=== PATIENT | male | born 1995 | race Caucasian/White ===

== ENCOUNTER 2016-09-07 11:38 | Emergency (ER) | payer OTHER ==
[~2016-09-07] VITALS: Wt 90.0 kg
[~2016-09-07 11:38] MED LIST: NAPR-688 PO; ONDA4TAB11 PO; RANI150T9 PO
[2016-09-07] MEDS ORDERED: morphine 4 MG/ML VIAL IV STA (12:05)
[2016-09-07] MEDS ORDERED: SOD CHLORIDE 0.9% 1,000 ML IV STA ×2 (12:05→13:46)
[2016-09-07] MEDS ORDERED: ONDANSETRON 4 MG INJ IV STA (12:05)
[2016-09-07 12:36] LABS: ALBUMIN 4.3 g/dl (3.3-4.9); BASOPHIL # 0.1 10^3/ul (0.0-0.1); BASOPHILS % 0.4 % (0.0-2.0); EOSINOPHILS # 0.2 10^3/ul (0.0-0.5); EOSINOPHILS % 1.2 % (0.0-7.0); HEMATOCRIT 42.7 % (42.0-52.0); HEMOGLOBIN 14.8 g/dl (14.0-18.0); LYMPHOCYTES # 3.9 10^3/ul (0.8-2.9); LYMPHOCYTES % 22.6 % (18.0-55.0); MEAN CORPUSCULAR HEMOGLOBIN 29.8 pg (29.0-33.0); MEAN CORPUSCULAR HGB CONC 34.6 g/dl (32.0-37.0); MEAN CORPUSCULAR VOLUME 86.2 fl (72.0-104.0); MEAN PLATELET VOLUME 9.7 fl (7.4-10.4); MONOCYTES % 5.8 % (0.0-13.0); NEUTROPHIL # 11.9 10^3/ul (1.6-7.5); PLATELET COUNT 247 10^3/UL (140-440); RED BLOOD COUNT 4.95 10^6/ul (4.70-6.10); RED CELL DISTRIBUTION WIDTH 13.4 % (11.5-14.5)
[2016-09-07 12:37] LABS: POTASSIUM 3.4 mmol/L (3.5-5.1)
[2016-09-07 12:38] LABS: INR 0.89; PARTIAL THROMBOPLASTIN TIME 25.2 Sec (25.0-35.0); PT RATIO 0.9
[2016-09-07 12:39] LABS: ALBUMIN/GLOBULIN RATIO 1.07; BILIRUBIN,INDIRECT 0.4 mg/dl (0-1.1); BILIRUBIN,TOTAL 0.4 mg/dl (0.2-1.3); CALCIUM 9.6 mg/dl (8.4-10.2); CREATININE 0.77 mg/dl (0.61-1.24); TOTAL PROTEIN 8.3 g/dl (6.1-8.1)
[2016-09-07 12:42] LABS: CONDITION 1; LH ANALYZER COMMENTS 1; SUSPECT 1
[2016-09-07] MEDS ORDERED: METOCLOPRAMIDE 10 MG INJ IV STA (13:46)
[2016-09-07] MEDS ORDERED: HYDROmorphONE 1 MG/ML SYG IV STA (13:46)
[2016-09-07] MEDS ORDERED: FAMOTIDINE 20 MG INJ IV STA (13:46)
[2016-09-07] MEDS ORDERED: BELLADONNA/PHENOBARBITAL TAB PO STA (13:52)
[2016-09-07] MEDS ORDERED: LIDOCAINE/MYLANTA 40 ML BTL PO STA (13:52)
--- NOTE | 2016-09-07 14:13 | ERD ---
ER Documentation Chief Complaint Date/Time DATE: 09/07/16 TIME: 14:06 Chief Complaint ABDOMINAL PAIN SINCE LAST NIGHT. UNABLE TO HOLD PO FLUIDS HPI This is a 20-year-old male with a known history of gastritis. The patient indicates that over the past 12 hours he has experienced multiple episodes of nonbloody nonbilious emesis. Afterwards he developed abdominal cramping that was most prominent in the left lower quadrant. The abdominal pain did not radiate to the back. He has had no fevers no shaking or chills. He denies any hemoptysis hematemesis or melanotic stools. He has no shortness of breath at rest or exertion. He states he has been unable to tolerate oral intake is every time he attempts to eat he has post prandial emesis. The patient did not take any analgesic medication prior to arrival and he indicates that his symptoms are similar nature to his previous episodes of gastritis, the most recent being 4 months prior to arrival. ROS All systems reviewed and are negative except as per history of present illness. Medications Home Meds Discontinued Scripts Naproxen* (Naproxen*) 500 Mg Tablet, 500 MG PO BID for PAIN, #14 TAB Prov:GREENADALBERTO DO 05/03/16 Ranitidine Hcl* (Zantac*) 150 Mg Tablet, 150 MG PO BID Y for EPIGASTRIC PAIN, # 30 TAB Prov:GREENADALBERTO DO 05/03/16 Ondansetron (Zofran Odt) 4 Mg Tab.rapdis, 4 MG PO Q6, #10 Prov:GREENADALBERTO DO 05/03/16 Allergies Allergies: Coded Allergies: No Known Allergies (Verified Allergy, Mild, 05/12/15) PMhx/Soc History of Surgery: Yes (MOUTH SURGERY) Anesthesia Reaction: No Hx Neurological Disorder: No Hx Respiratory Disorders: No Hx Cardiac Disorders: No Hx Psychiatric Problems: No Hx Miscellaneous Medical Probl: Yes (gastritis) Hx Alcohol Use: Yes Hx Substance Use: No Hx Tobacco Use: No Smoking Status: Never smoker Physical Exam Vitals Vital Signs Date Time Temp Pulse Resp B/P Pulse Ox O2 Delivery O2 Flow Rate FiO2 09/07/16 11:40 98.6 97 20 132/79 100 Physical Exam Constitutional:Well-developed. Well-nourished. Actively vomiting nonbloody nonbilious emesis HEENT:Normocephalic. Atraumatic.Pupils were equal round reactive to light. Very dry mucous membranes.No tonsillar exudates. Neck: No nuchal rigidity. No lymphadenopathy. No posterior cervical spine tenderness or step-offs. Respiratory: Not using accessory muscles of respiration.Lungs were clear to auscultation bilaterally. No rhonchi. No rales. No wheezing. Cardiovascular: Regular rate regular rhythm.No murmurs. No rubs were appreciated.S1, S2 normal. Distal pulses are palpable 2+ bilaterally. GI: Abdomen was soft. Minimal tenderness in the left lower quadrant. Non Distended. No pulsatile abdominal masses or bruits. No rebound. No guarding. Bowel sounds were present and normal. Muscle skeletal: Full range of motion of both the upper and lower extremities bilaterally.Normal muscle tone.No assymetrical calf tenderness or swelling. Skin: No petechia, no purpura. No lesions on the palms or the soles of the feet. No maculopapular rash. NEURO: Patient was alert, awake, orientated x3.No facial droop. Gait observed and normal with no ataxia.Speech had regular rate and rhythm. No focal neurological deficits. Result Diagram: 09/07/16 1220 09/07/16 1220 Results 24 hrs Laboratory Tests Test 09/07/16 12:20 Activated Partial Thromboplast Time 25.2Sec Alanine Aminotransferase (ALT/SGPT) 47IU/L Albumin 4.3g/dl Albumin/Globulin Ratio 1.07 Alkaline Phosphatase 100IU/L Amylase Level 88U/L Anion Gap 19 Aspartate Amino Transf (AST/SGOT) 29IU/L Basophils # 0.110^3/ul Basophils % 0.4% Blood Urea Nitrogen 12mg/dl Calcium Level 9.6mg/dl Carbon Dioxide Level 21mmol/L Chloride Level 104mmol/L Creatinine 0.77mg/dl Direct Bilirubin 0.00mg/dl Eosinophils # 0.210^3/ul Eosinophils % 1.2% Globulin 4.00g/dl Glucose Level 154mg/dl Hematocrit 42.7% Hemoglobin 14.8g/dl INR International Normalized Ratio 0.89 Indirect Bilirubin 0.4mg/dl Lipase 70U/L Lymphocytes # 3.910^3/ul Lymphocytes % 22.6% Mean Corpuscular Hemoglobin 29.8pg Mean Corpuscular Hemoglobin Concent 34.6g/dl Mean Corpuscular Volume 86.2fl Mean Platelet Volume 9.7fl Monocytes # 1.010^3/ul Monocytes % 5.8% Neutrophils # 11.910^3/ul Neutrophils % 70.0% Nucleated Red Blood Cells # 0.010^3/ul Nucleated Red Blood Cells % 0.0/100WBC Platelet Count 58157^3/UL Potassium Level 3.4mmol/L Prothrombin Time 12.0Sec Prothrombin Time Ratio 0.9 Red Blood Count 4.9510^6/ul Red Cell Distribution Width 13.4% Sodium Level 141mmol/L Total Bilirubin 0.4mg/dl Total Protein 8.3g/dl White Blood Count 17.010^3/ul Current Medications Medications (Trade) Dose Ordered Sig/Yuly Route PRN Reason Start Time Stop Time Status Last Admin Dose Admin Sodium Chloride (NS) 1,000 ml @ 1,000 mls/hr Q1H STAT IV 09/07/16 12:05 09/07/16 13:04 DC 09/07/16 12:28 Morphine Sulfate (morphine) 4 mg ONCE STAT IV 09/07/16 12:05 09/07/16 12:10 DC 09/07/16 12:28 Ondansetron HCl 4 mg 4 mg ONCE STAT IV 09/07/16 12:05 09/07/16 12:10 DC 09/07/16 12:28 Sodium Chloride (NS) 1,000 ml @ 1,000 mls/hr Q1H STAT IV 09/07/16 13:46 09/07/16 14:45 Hydromorphone HCl (Dilaudid) 1 mg ONCE STAT IV 09/07/16 13:46 09/07/16 13:49 DC Metoclopramide HCl (Reglan) 10 mg ONCE STAT IV 09/07/16 13:46 09/07/16 13:49 DC Famotidine (Pepcid Iv) 20 mg ONCE STAT IV 09/07/16 13:46 09/07/16 13:49 DC Miscellaneous Medication (Gi Cocktail (2)) 40 ml ONCE STAT PO 09/07/16 13:52 09/07/16 13:53 DC Belladonna/ Phenobarbital () 2 tab ONCE STAT PO 09/07/16 13:52 09/07/16 13:53 DC Procedures/MDM This patient presented to the emergency department with abdominal pain and was seen and evaluated by myself. My differential diagnosis included but was not limited to abdominal aortic aneurysm, appendicitis, pancreatitis, perforated peptic ulcer, perforated viscus, Boerhaaves syndrome or visceral pain such as diverticulitis, DKA, esophagitis, hepatitis or bowel obstruction. The patient was placed on a cardiac/vascular sonographer, continuous pulse oximetry, and IV access was established by nursing staff. The patient received analgesic medication which included morphine Zofran and was also given IV Pepcid. For further antiemetics the patient received Reglan. He was also given a GI cocktail. I did feel is necessary to obtain a CT scan of his abdomen due to the severity of his symptoms and emesis. There did not appear to be an acute surgical abdomen or abnormality seen on the CT scan. The patient is now able to tolerate oral intake and he did feel comfortable being discharged home. He was sent home with Prilosec and Zofran. The patient was discharged home in fair condition. They were instructed to return to the emergency department at any time if there was any worsening of their condition. The patient stated they would follow up with their PCP in the next 24-48 hours to initiate a suitable medication regimen under the care of their PCP as well as to allow their PCP to monitor any drug reactions. The patient was discharged home with prescriptions after they gave informed consent to the new medication. They were also fully informed by myself on the adverse effects and adverse drug interactions in order to provide adequate safeguards to prevent possible adverse reactions to medications. Observation Note: Time: 4 hours Family Hx: No Hypertension Evaluation: Multiple exams showed improving symptoms and no evidence of further emesis as he was able to tolerate oral intake Departure Diagnosis: Primary Impression: Acute gastritis Gastritis type: unspecified gastritis Gastritis bleeding: without bleeding Qualified Code: K29.00 - Acute gastritis without hemorrhage, unspecified gastritis type Condition: Fair JAYLA BECERRA Sep 07, 2016 14:13
[2016-09-07] MEDS ORDERED: IOHEXOL 300MG/ML 150 ML BTL ONE (14:29)
[2016-09-07] MEDS ORDERED: SOD CHLORIDE 0.9% 100 ML ONE (14:29)
--- NOTE | 2016-09-07 15:01 | RADRPT ---
PROCEDURE: CT Abdomen and Pelvis with contrast. CLINICAL INDICATION: Abdomen and pelvis pain. TECHNIQUE: CT scan of the abdomen and pelvis with contrast was performed. The patient was scanned following the uncomplicated intravenous administration of 100 cc of Omnipaque-300. Coronal and sag ittal reformatted images were obtained from the axial source images. Images were reviewed on a high- resolution PACS workstation. Total exam DLP is 1169.52 mGy-cm. CTDIvol is 17.92 mGy. One or more of the following dose reduction techniques were used: Automated exposure control, adjustment of the mA and/or kV according to patient size, use of iterative reconstruction technique. COMPARISON: CT scan of the abdomen and pelvis dated 04/21/2013, 03/28/2014, and 01/24/2015 which w ere normal. FINDINGS: The lung bases are normal. There is no pleural effusion. The liver is normal in size and attenuation. There is no focal hepatic lesion. The gallbladder and bile ducts are normal. The spleen is normal in size. There is no focal splenic lesion. Both adrenals are normal with no enlargement or mass. The pancreas is unremarkable with no mass or evidence of pancreatitis. Both kidneys demonstrate normal contrast enhancement. There is no renal mass or hydronephrosis. The abdominal aorta is not dilated. There is no retroperitoneal lymphadenopathy or mass. There is no pelvic lymphadenopathy or mass. The bladder and distal ureters are normal. The periappendiceal region is unremarkable with no evidence of appendicitis. The bowel and mesentery are normal. There is no free fluid or free gas. The osseous structures are unremarkable with no fracture or lytic lesion. IMPRESSION: 1. Unremarkable CT scan of the abdomen and pelvis. 2. No change from 04/21/2013, 03/28/2014, and 01/24/2015. RPTAT: QQ .Koby Pascual MD, MD Date Time Electronically viewed and signed by .Koby Pascual MD, on 09/07/2016 15:01 .R/
[2016-09-07] MEDS ORDERED: ONDA4TAB14 PO (15:04)
[2016-09-07] MEDS ORDERED: OMEP40CA6 PO (15:04)
[2016-09-07 15:45] VITALS: BP 132/78; PULSE 67; RESP 18; TEMP 98.6
== END 2016-09-07 15:52 | disposition home or self-care (01) ==
LOC: E/R 11:38
DX: K29.00 Acute gastritis without bleeding (principal); R11.10 Vomiting, unspecified
CPT/HCPCS: 74177; 80053; 82150; 83690; 85025; 85610; 85730; 96374; 96375; J1170; J2270; J2405; J2765; J7030; Q9967; Z7502; Z7610

== ENCOUNTER 2017-03-16 10:10 | Emergency (ER) | payer MEDICAID ==
[~2017-03-16] VITALS: Ht 193 cm; Wt 205.0 kg
[~2017-03-16 10:10] MED LIST changes: +HYDR-906 PO; +OMEP40CA6 PO; +ONDA4TAB14 PO
[2017-03-16 10:20] VITALS: Ht 193 cm; Wt 205.0 kg
[2017-03-16] MEDS ORDERED: ONDANSETRON 4 MG INJ IV STA (12:10)
[2017-03-16] MEDS ORDERED: morphine 4 MG/ML VIAL IV STA (12:15)
[2017-03-16] MEDS ORDERED: FAMOTIDINE 20 MG INJ IV ONE (12:30)
[2017-03-16 12:34] LABS: BASOPHIL # 0.1 10^3/ul (0.0-0.1); BASOPHILS % 0.3 % (0.0-2.0); EOSINOPHILS % 0.2 % (0.0-7.0); HEMATOCRIT 41.3 % (42.0-52.0); HEMOGLOBIN 14.7 g/dl (14.0-18.0); LYMPHOCYTES # 1.4 10^3/ul (0.8-2.9); LYMPHOCYTES % 8.3 % (15.0-51.0); MEAN CORPUSCULAR HEMOGLOBIN 30.6 pg (29.0-33.0); MEAN CORPUSCULAR HGB CONC 35.6 g/dl (32.0-37.0); MEAN CORPUSCULAR VOLUME 85.9 fl (82.0-101.0); MEAN PLATELET VOLUME 11.4 fl (7.4-10.4); MONOCYTE # 0.8 10^3/ul (0.3-0.9); MONOCYTES % 4.5 % (0.0-11.0); NEUTROPHIL # 14.8 10^3/ul (1.6-7.5); NEUTROPHILS % 86.2 % (39.0-77.0); PLATELET COUNT 199 10^3/UL (140-415); RED BLOOD COUNT 4.81 10^6/ul (4.70-6.10); RED CELL DISTRIBUTION WIDTH 12.9 % (11.5-14.5); WHITE BLOOD COUNT 17.2 10^3/ul (4.8-10.8)
--- NOTE | 2017-03-16 12:48 | ERD ---
ER Documentation Chief Complaint Date/Time DATE: 03/16/17 TIME: 12:44 Chief Complaint LOUDLY VOMITING HPI This a 21-year-old male who presents the emergency department today complaining of abdominal pain and vomiting for the past 5 days and worsened today. Patient states he has been told he has gastritis in the past. States that he drinks 1 beer per month. States that he smokes marijuana daily. Denies any fevers or chills. ROS All systems reviewed and are negative except as per history of present illness. Medications Home Meds Active Scripts Electrolyte,Oral (Pedialyte) 1,000 Ml Solution, 100 ML PO Q6 Y for vomiting, # 1000 ML Prov:TIA CORRAL PA-C 03/16/17 Acetaminophen* (Tylophen*) 500 Mg Capsule, 1 CAP PO Q6H Y for PAIN AND OR ELEVATED TEMP, #30 CAP Prov:TIA CORRAL PA-C 03/16/17 Famotidine* (Pepcid*) 20 Mg Tablet, 20 MG PO BID for 14 Days, TAB Prov:TIA CORRAL PA-C 03/16/17 Ondansetron Hcl* (Zofran*) 4 Mg Tablet, 4 MG PO Q6H for NAUSEA AND/OR VOMITING, #30 TAB Prov:TIA CORRAL PA-C 03/16/17 Ranitidine Hcl* (Zantac*) 150 Mg Tablet, 150 MG PO BID Y for EPIGASTRIC PAIN, # 30 TAB Prov:ADALBERTO BEGUM DO 10/15/16 Hydrocodone/Acetaminophen ([place] 5-325 Tablet) 1 Each Tablet, 1 EACH PO Q6, #10 TAB Prov:ADALBERTO BEGUM DO 10/15/16 Ondansetron (Zofran Odt) 4 Mg Tab.rapdis, 4 MG PO Q6, #10 Prov:ADALBERTO BEGUM DO 10/15/16 Naproxen* (Naproxen*) 500 Mg Tablet, 500 MG PO BID Y for PAIN, #20 TAB Prov:ADALBERTO BEGUM DO 10/15/16 Omeprazole* (Omeprazole*) 40 Mg Capsule.dr, 40 MG PO DAILY, #10 CAP Prov:JAYLA BECERRA 09/07/16 Ondansetron (Ondansetron Odt) 4 Mg Tab.rapdis, 4 MG PO Q6H Y for NAUSEA AND/OR VOMITING, #20 TAB Prov:JAYLA BECERRA 09/07/16 Allergies Allergies: Coded Allergies: No Known Allergies (Verified Allergy, Mild, 03/16/17) PMhx/Soc History of Surgery: Yes (MOUTH SURGERY) Anesthesia Reaction: No Hx Neurological Disorder: No Hx Respiratory Disorders: No Hx Cardiac Disorders: No Hx Psychiatric Problems: No Hx Miscellaneous Medical Probl: Yes (gastritis) Hx Alcohol Use: Yes (socially) Hx Substance Use: Yes (daily marijuana) Hx Tobacco Use: Yes Smoking Status: Current every day smoker Physical Exam Vitals Vital Signs Date Time Temp Pulse Resp B/P Pulse Ox O2 Delivery O2 Flow Rate FiO2 03/16/17 10:20 98.5 84 18 141/74 100 Physical Exam Const: No acute distress Head: Atraumatic Eyes: Normal Conjunctiva ENT: Normal External Ears, Nose and Mouth. Throat erythema no exudate. Neck: Full range of motion..~ No meningismus. Resp: Clear to auscultation bilaterally Cardio: Regular rate and rhythm, no murmurs Abd: Soft, epigastric tenderness mild left upper quadrant non distended. Normal bowel sounds. No other quadrant pain. No tenderness [place] Skin: No petechiae or rashes Back: No midline or flank tenderness Ext: No cyanosis, or edema Neur: Awake and alert Psych: Normal Mood and Affect Result Diagram: 03/16/17 1225 03/16/17 1225 Results 24 hrs Laboratory Tests Test 03/16/17 12:25 White Blood Count 17.210^3/ul Red Blood Count 4.8110^6/ul Hemoglobin 14.7g/dl Hematocrit 41.3% Mean Corpuscular Volume 85.9fl Mean Corpuscular Hemoglobin 30.6pg Mean Corpuscular Hemoglobin Concent 35.6g/dl Red Cell Distribution Width 12.9% Platelet Count 54761^3/UL Mean Platelet Volume 11.4fl Neutrophils % 86.2% Lymphocytes % 8.3% Monocytes % 4.5% Eosinophils % 0.2% Basophils % 0.3% Nucleated Red Blood Cells % 0.0/100WBC Neutrophils # 14.810^3/ul Lymphocytes # 1.410^3/ul Monocytes # 0.810^3/ul Eosinophils # 0.010^3/ul Basophils # 0.110^3/ul Nucleated Red Blood Cells # 0.010^3/ul Sodium Level 144mmol/L Potassium Level 3.6mmol/L Chloride Level 101mmol/L Carbon Dioxide Level 22mmol/L Anion Gap 25 Blood Urea Nitrogen 11mg/dl Creatinine 0.74mg/dl Glucose Level 163mg/dl Calcium Level 10.0mg/dl Total Bilirubin 1.0mg/dl Direct Bilirubin 0.00mg/dl Indirect Bilirubin 1.0mg/dl Aspartate Amino Transf (AST/SGOT) 30IU/L Alanine Aminotransferase (ALT/SGPT) 43IU/L Alkaline Phosphatase 89IU/L Total Protein 8.7g/dl Albumin 4.8g/dl Globulin 3.90g/dl Albumin/Globulin Ratio 1.23 Lipase 84U/L Current Medications Medications (Trade) Dose Ordered Sig/Yuly Route PRN Reason Start Time Stop Time Status Last Admin Dose Admin Ondansetron HCl (Zofran Inj) 4 mg ONCE STAT IV 03/16/17 12:10 03/16/17 12:13 DC 03/16/17 12:28 Famotidine (Pepcid Iv) 20 mg ONCE ONCE IV 03/16/17 12:30 03/16/17 12:31 DC 03/16/17 12:28 Morphine Sulfate 4 mg 4 mg ONCE STAT IV 03/16/17 12:15 03/16/17 12:16 DC 03/16/17 12:39 Sodium Chloride (NS) 500 ml @ 500 mls/hr Q1H ONCE IV 03/16/17 14:30 03/16/17 15:09 DC 03/16/17 14:04 Metoclopramide HCl (Reglan) 10 mg ONCE ONCE IV 03/16/17 14:30 03/16/17 14:31 DC 03/16/17 14:10 Procedures/[facility] Is a 21-year-old male presents to the emergency department today complaining of abdominal pain and vomiting for the past 5 days it is worse today. Upon review of patient's medical records patient has been seen 2 other times this year multiple times in the past for vomiting and epigastric pain. Patient's vital signs are stable however given duration of symptoms I did obtain laboratory work. I do not feel he requires a CT scan or imaging at this time. Low suspicion for acute surgical abdomen. Laboratory workup shows an elevated white blood cell count. Electro lites are within normal limits. Lipase within normal limits. Liver enzymes are within normal limits. Glucose within normal limits. Upon review of patient's medical records patient always has an elevated white blood cell count and the lowest upon review of medical records is 16. Patient' s white blood cell count 17 today. Likely reactive. Patient endorsed smoking marijuana daily and I have explained to him that this may be the cause of much of his vomiting the symptoms appear consistent with cyclic vomiting syndrome and vomiting related to cannabis use. I have explained to the patient he needs to stop smoking marijuana. Patient was given , morphine, Zofran and Pepcid here in the emergency department as well as a p.o. challenge. Patient was complaining that he was dizzy was therefore given IV fluids and Reglan. Patient's dizziness, pain and vomiting improved. He was discharged home with Zofran, Pepcid, Tylenol. Patient was instructed to stop abusing marijuana. At this time the patient is stable for discharge and outpatient management. Patient should follow up with their PCP in the next 1-2 days. They may return to the emergency department sooner for any persistent or worsening of symptoms. Patient understood and agreed with the plan. Departure Diagnosis: Primary Impression: Nausea and vomiting Vomiting type: unspecified Vomiting Intractability: non-intractable Qualified Code: R11.2 - Non-intractable vomiting with nausea, unspecified vomiting type Additional Impression: Abdominal pain Abdominal location: epigastric Qualified Code: R10.13 - Epigastric pain Condition: TIA Jaimes PA-C Mar 16, 2017 12:48
[2017-03-16 12:54] LABS: ALBUMIN 4.8 g/dl (3.3-4.9); ALBUMIN/GLOBULIN RATIO 1.23; CREATININE 0.74 mg/dl (0.61-1.24); POTASSIUM 3.6 mmol/L (3.5-5.1); TOTAL PROTEIN 8.7 g/dl (6.1-8.1)
[2017-03-16] MEDS ORDERED: SOD CHLORIDE 0.9% 500 ML IV ONE (14:30)
[2017-03-16] MEDS ORDERED: METOCLOPRAMIDE 10 MG INJ IV ONE (14:30)
[2017-03-16] MEDS ORDERED: ONDA4TAB8 PO (14:50)
[2017-03-16] MEDS ORDERED: FAMO-96 PO (14:51)
[2017-03-16] MEDS ORDERED: ACET500C5 PO (14:51)
[2017-03-16] MEDS ORDERED: ELEC100080 PO (14:51)
== END 2017-03-16 15:09 | disposition home or self-care (01) ==
LOC: FTE 10:10
DX: R11.2 Nausea with vomiting, unspecified (principal); R10.13 Epigastric pain; F17.210 Nicotine dependence, cigarettes, uncomplicated
CPT/HCPCS: 80053; 83690; 85025; 96374; 96375; J2270; J2405; J2765; J7040; Z7502; Z7610

== ENCOUNTER 2017-06-01 17:53 | Emergency (ER) | payer MEDICAID ==
[~2017-06-01] VITALS: Ht 175.3 cm; Wt 68.0 kg
[~2017-06-01 17:53] MED LIST changes: +ACET500C5 PO; +ELEC100080 PO; +FAMO-96 PO; +ONDA4TAB8 PO
[2017-06-01 18:03] VITALS: Ht 175.3 cm; Wt 68.0 kg
[2017-06-01] MEDS ORDERED: FAMOTIDINE 20 MG INJ IV STA (18:51)
[2017-06-01] MEDS ORDERED: SOD CHLORIDE 0.9% 1,000 ML IV STA (18:51)
[2017-06-01] MEDS ORDERED: ONDANSETRON 4 MG INJ IV STA (18:51)
[2017-06-01] MEDS ORDERED: morphine 4 MG/ML VIAL IV STA ×2 (18:51→20:15)
[2017-06-01] MEDS ORDERED: LIDOCAINE/MYLANTA 40 ML BTL PO STA (18:51)
[2017-06-01 19:24] LABS: BASOPHIL # 0.1 10^3/ul (0.0-0.1); BASOPHILS % 0.3 % (0.0-2.0); EOSINOPHILS # 0.1 10^3/ul (0.0-0.5); EOSINOPHILS % 0.8 % (0.0-7.0); HEMATOCRIT 39.7 % (42.0-52.0); HEMOGLOBIN 13.7 g/dl (14.0-18.0); LYMPHOCYTES # 2.3 10^3/ul (0.8-2.9); LYMPHOCYTES % 13.9 % (15.0-51.0); MEAN CORPUSCULAR HGB CONC 34.5 g/dl (32.0-37.0); MEAN CORPUSCULAR VOLUME 87.1 fl (82.0-101.0); MEAN PLATELET VOLUME 11.4 fl (7.4-10.4); NEUTROPHIL # 13.3 10^3/ul (1.6-7.5); NEUTROPHILS % 78.6 % (39.0-77.0); PLATELET COUNT 224 10^3/UL (140-415); RED BLOOD COUNT 4.56 10^6/ul (4.70-6.10); RED CELL DISTRIBUTION WIDTH 12.8 % (11.5-14.5); WHITE BLOOD COUNT 16.9 10^3/ul (4.8-10.8)
[2017-06-01 19:46] LABS: ADD UMIC YES; UR AMORPHOUS CRYSTAL MODERATE /HPF (NONE SEEN); UR ASCORBIC ACID NEGATIVE (NEGATIVE); UR BACTERIA FEW /HPF (NONE SEEN); UR BILIRUBIN (Dip) NEGATIVE (NEGATIVE); UR BLOOD (Dip) NEGATIVE (NEGATIVE); UR CLARITY CLOUDY (CLEAR); UR COLOR YELLOW (YELLOW); UR GLUCOSE (Dip) NEGATIVE (NEGATIVE); UR KETONES (Dip) 1+ mg/dL (NEGATIVE); UR LEUKOCYTE ESTERASE (Dip) NEGATIVE Leu/ul (NEGATIVE); UR MUCUS FEW /HPF (NONE SEEN); UR NITRITE (Dip) NEGATIVE (NEGATIVE); UR RBC 2 /HPF (0-5); UR SPECIFIC GRAVITY (Dip) 1.014 (1.003-1.030); UR TOTAL PROTEIN (Dip) NEGATIVE (NEGATIVE); UR UROBILINOGEN (Dip) 1+ mg/dL (NEGATIVE)
[2017-06-01 19:52] LABS: ALBUMIN 4.7 g/dl (3.3-4.9); ALBUMIN/GLOBULIN RATIO 1.34; BILIRUBIN,INDIRECT 0.4 mg/dl (0-1.1); BILIRUBIN,TOTAL 0.4 mg/dl (0.2-1.3); CALCIUM 9.8 mg/dl (8.4-10.2); CREATININE 0.71 mg/dl (0.61-1.24); POTASSIUM 3.2 mmol/L (3.5-5.1); TOTAL PROTEIN 8.2 g/dl (6.1-8.1)
[2017-06-01] MEDS ORDERED: POTASSIUM CHLORIDE (SR) 20 MEQ TAB PO STA (20:21)
[2017-06-01] MEDS ORDERED: LORAZEPAM 2 MG INJ IV ONE (20:30)
[2017-06-01] MEDS ORDERED: ONDA4TAB14 PO (21:36)
[2017-06-01] MEDS ORDERED: OMEP20CA16 PO (21:36)
--- NOTE | 2017-06-03 14:17 | ERD ---
ER Documentation Chief Complaint Chief Complaint Complains of vomiting since today per family HPI Patient is a 21-year-old male presenting to the emergency department with complaints of left upper quadrant and epigastric pain along with one episode of vomiting which began today. Symptoms have been intermittent over the last 1.5 hours. He has history of multiple similar episodes in the past requiring him to come to the emergency room and received IV fluids, IV pain medication, and IV Zofran. He had a CT abdomen and pelvis without contrast on October 15, 2016 which showed: No acute abnormality identified within the abdomen and pelvis. Few scattered colonic diverticuli without evidence of diverticulitis. The patient denies right lower quadrant pain, urinary symptoms, fevers, diarrhea, or other symptoms currently. Symptoms are currently moderate in severity. ROS All systems reviewed and are negative except as per history of present illness. Medications Home Meds Active Scripts Ondansetron (Ondansetron Odt) 4 Mg Tab.rapdis, 4 MG PO Q6H Y for NAUSEA AND/OR VOMITING, #10 TAB Prov:EL BLACK PA-C 06/01/17 Omeprazole* (Omeprazole*) 20 Mg Capsule.dr, 20 MG PO DAILY, #30 Prov:EL BLACK PA-C 06/01/17 Electrolyte,Oral (Pedialyte) 1,000 Ml Solution, 100 ML PO Q6 Y for vomiting, # 1000 ML Prov:TIA CORRAL PA-C 03/16/17 Acetaminophen* (Tylophen*) 500 Mg Capsule, 1 CAP PO Q6H Y for PAIN AND OR ELEVATED TEMP, #30 CAP Prov:TIA CORRAL PA-C 03/16/17 Famotidine* (Pepcid*) 20 Mg Tablet, 20 MG PO BID for 14 Days, TAB Prov:TIA CORRAL PA-C 03/16/17 Ondansetron Hcl* (Zofran*) 4 Mg Tablet, 4 MG PO Q6H for NAUSEA AND/OR VOMITING, #30 TAB Prov:TIA CORRAL PA-C 03/16/17 Ranitidine Hcl* (Zantac*) 150 Mg Tablet, 150 MG PO BID Y for EPIGASTRIC PAIN, # 30 TAB Prov:ADALBERTO BEGUM DO 10/15/16 Hydrocodone/Acetaminophen ([place] 5-325 Tablet) 1 Each Tablet, 1 EACH PO Q6, #10 TAB Prov:ADALBERTO BEGUM DO 10/15/16 Ondansetron (Zofran Odt) 4 Mg Tab.rapdis, 4 MG PO Q6, #10 Prov:ADALBERTO BEGUM DO 10/15/16 Naproxen* (Naproxen*) 500 Mg Tablet, 500 MG PO BID Y for PAIN, #20 TAB Prov:ADALBERTO BEGUM DO 10/15/16 Omeprazole* (Omeprazole*) 40 Mg Capsule.dr, 40 MG PO DAILY, #10 CAP Prov:JAYLA BECERRA 09/07/16 Ondansetron (Ondansetron Odt) 4 Mg Tab.rapdis, 4 MG PO Q6H Y for NAUSEA AND/OR VOMITING, #20 TAB Prov:JAYLA BECERRA 09/07/16 Allergies Allergies: Coded Allergies: No Known Allergies (Verified Allergy, Mild, 03/16/17) PMhx/Soc History of Surgery: Yes (MOUTH SURGERY) Anesthesia Reaction: No Hx Neurological Disorder: No Hx Respiratory Disorders: No Hx Cardiac Disorders: No Hx Psychiatric Problems: No Hx Miscellaneous Medical Probl: Yes (gastritis) Hx Alcohol Use: Yes (socially) Hx Substance Use: Yes (daily marijuana) Hx Tobacco Use: Yes Smoking Status: Smoker,current status unk Physical Exam Vitals Vital Signs Date Time Temp Pulse Resp B/P Pulse Ox O2 Delivery O2 Flow Rate FiO2 06/01/17 18:03 97.0 91 20 138/77 100 Physical Exam Const: Nontoxic, well-appearing male in no acute distress. Head: Atraumatic Eyes: Normal Conjunctiva ENT: Normal External Ears, Nose and Mouth. Neck: Full range of motion..~ No meningismus. Resp: Clear to auscultation bilaterally Cardio: Regular rate and rhythm, no murmurs Abd: Soft, tenderness palpation of the midepigastric region, non distended. Normal bowel sounds Skin: No petechiae or rashes Back: No midline or flank tenderness Ext: No cyanosis, or edema Neur: Awake and alert Psych: Normal Mood and Affect Result Diagram: 06/01/17191706/01/171917 Results 24 hrs Laboratory Tests Test 06/01/17 19:00 10/20/17 19:18 Urine Color YELLOW Urine Clarity CLOUDY Urine pH 8.0 Urine Specific [place] 1.014 Urine Ketones 1+mg/dL Urine Nitrite NEGATIVEmg/dL Urine Bilirubin NEGATIVEmg/dL Urine Urobilinogen 1+mg/dL Urine Leukocyte Esterase NEGATIVELeu/ul Urine Microscopic RBC 2/HPF Urine Microscopic WBC 11/HPF Urine Amorphous Crystals MODERATE/HPF Urine Bacteria FEW/HPF Urine Mucus FEW/HPF Urine Hemoglobin NEGATIVEmg/dL Urine Glucose NEGATIVEmg/dL Urine Total Protein NEGATIVEmg/dl White Blood Count 16.910^3/ul Red Blood Count 4.5610^6/ul Hemoglobin 13.7g/dl Hematocrit 39.7% Mean Corpuscular Volume 87.1fl Mean Corpuscular Hemoglobin 30.0pg Mean Corpuscular Hemoglobin Concent 34.5g/dl Red Cell Distribution Width 12.8% Platelet Count 04040^3/UL Mean Platelet Volume 11.4fl Neutrophils % 78.6% Lymphocytes % 13.9% Monocytes % 6.0% Eosinophils % 0.8% Basophils % 0.3% Nucleated Red Blood Cells % 0.0/100WBC Neutrophils # 13.310^3/ul Lymphocytes # 2.310^3/ul Monocytes # 1.010^3/ul Eosinophils # 0.110^3/ul Basophils # 0.110^3/ul Nucleated Red Blood Cells # 0.010^3/ul Sodium Level 142mmol/L Potassium Level 3.2mmol/L Chloride Level 103mmol/L Carbon Dioxide Level 23mmol/L Anion Gap 19 Blood Urea Nitrogen 9mg/dl Creatinine 0.71mg/dl Glucose Level 157mg/dl Calcium Level 9.8mg/dl Total Bilirubin 0.4mg/dl Direct Bilirubin 0.00mg/dl Indirect Bilirubin 0.4mg/dl Aspartate Amino Transf (AST/SGOT) 28IU/L Alanine Aminotransferase (ALT/SGPT) 37IU/L Alkaline Phosphatase 89IU/L Total Protein 8.2g/dl Albumin 4.7g/dl Globulin 3.50g/dl Albumin/Globulin Ratio 1.34 Lipase 55U/L Current Medications Medications (Trade) Dose Ordered Sig/Yuly Route PRN Reason Start Time Stop Time Status Last Admin Dose Admin Sodium Chloride (NS) 1,000 ml @ 1,000 mls/hr Q1H STAT IV 06/01/17 18:51 06/01/17 19:50 DC 06/01/17 19:17 Morphine Sulfate (morphine) 4 mg ONCE STAT IV 06/01/17 18:51 06/01/17 18:54 DC 06/01/17 19:16 Ondansetron HCl (Zofran Inj) 4 mg ONCE STAT IV 06/01/17 18:51 06/01/17 18:54 DC 06/01/17 19:17 Famotidine (Pepcid Iv) 20 mg ONCE STAT IV 06/01/17 18:51 06/01/17 18:54 DC 06/01/17 19:16 Miscellaneous Medication (Gi Cocktail (2)) 40 ml ONCE STAT PO 06/01/17 18:51 06/01/17 18:54 DC 06/01/17 19:16 Lorazepam (Ativan) 1 mg ONCE ONCE IV 06/01/17 20:30 06/01/17 20:31 DC 06/01/17 20:26 Morphine Sulfate (morphine) 4 mg ONCE STAT IV 06/01/17 20:15 06/01/17 20:20 DC 06/01/17 20:25 Potassium Chloride (Klor-Con 20) 20 meq ONCE STAT PO 06/01/17 20:21 06/01/17 20:23 DC 06/01/17 20:37 Procedures/MDM Patient is a 21-year-old male presenting to the emergency department with complaints of midepigastric pain associated with retching and vomiting. The patient was placed on a stretcher and IV line was established. He was initially given IV fluids, 4 mg of morphine, 4 mg of Zofran, 20 mg of Pepcid, a GI cocktail. He was still complaining of pain after medication and was given another 4 mg of morphine and 1 mg of Ativan. He was feeling improved after these medications. He was found to be slightly hypokalemic and was also given 20 MEQ of potassium p.o. CBC showed leukocytosis at 16.9, which is likely reactive due to his cyclical vomiting syndrome. Upon review of his past records when he was in the emergency department he has consistently had elevated white blood cell count. Review of chemistry panel showed slight hypokalemia at 3.2. This was supplemented with oral potassium. No other significant abnormalities noted on chemistry panel. Urinalysis is not concerning for infection, proteinuria, or hematuria. The patient is feeling improved after treatment in the department. His symptoms are likely secondary to cyclical vomiting syndrome, which he has a history of. He does smoke marijuana daily. I do not feel that imaging was required at this time because his presentation was very similar to previous episodes, he was stabilized in the department, and because he had a recent CT imaging which was negative. I shared my medical decision making with the patient and he was in agreement. He was stable for discharge with prescriptions. He is to return immediately for any new or worsening symptoms. He is to follow-up with his primary care physician within the next 1-2 days. Departure Diagnosis: Primary Impression: Nausea and vomiting Vomiting type: cyclical vomiting Vomiting Intractability: non-intractable Qualified Code: G43.A0 - Non-intractable cyclical vomiting with nausea Condition: Fair Patient Instructions: Nausea and Vomiting-Adult Additional Instructions: Follow up with your PCP within the next 1-3 days for a repeat evaluation. If you require a referral to a specialist, your Primary Care Provider may be able to provide this for you. In most patient cases, a referral is not required. If you have further questions regarding this matter, please ask your Primary Care Provider. Return the the emergency department immediately if symptoms worsen or change. If you have any questions regarding medications, ask your pharmacist or us before you leave. If any adverse reactions, occur while taking your medications, discontinue the treatment and return to the emergency department immediately. If any new or worsening symptoms, uncontrolled fevers, or other unexplained symptoms occur, return to the emergency department immediately. Take your medications as directed, and complete the entire course of treatment. EL BLACK PA-C Jun 03, 2017 14:14
== END 2017-06-01 23:13 | disposition home or self-care (01) ==
LOC: FTE 17:53
DX: G43.A0 Cyclical vomiting, in migraine, not intractable (principal); F17.210 Nicotine dependence, cigarettes, uncomplicated
CPT/HCPCS: 36415; 80053; 81001; 83690; 85025; 96374; 96375; 96376; J2060; J2270; J2405; J7030; Z7502; Z7610

== ENCOUNTER 2017-10-31 11:09 | Emergency (ER) | END 2017-10-31 13:44 | disposition home or self-care (01) ==

== ENCOUNTER 2017-11-02 16:45 | Emergency (ER) | END 2017-11-02 17:12 | disposition home or self-care (01) ==